=== PATIENT | female | born 1970 | race Caucasian/White ===

== ENCOUNTER 2024-07-28 09:53 | Outpatient (CLI) | payer OTHER, SELFPAY ==
--- NOTE | ~2024-07-28 | US_ITS ---
Pelvic ultrasound. Clinical History: Postmenopausal bleeding Technique: Realtime transvaginal scanning of the pelvis was performed. Color flow Doppler and Doppler spectral analysis were performed. Findings: The uterus is anteverted. The endometrial stripe has a thickness of 10 mm. No focal mass i s identified. The right ovary is not visualized. No significant right ovarian or adnexal mass is seen. The left ovary measures 2.3 x 3.0 x 2.3 cm. No significant left ovarian or adnexal mass is seen. There is no evidence of free fluid in the cul de sac. Impression: Endometrial thickening up to 10 mm. Diagnostic considerations include endometrial hyperplasia or poss ibly early endometrial neoplasm. Further workup advised, including possibly endometrial biopsy. Reviewed, dictated and finalized at location . [employer] Impression: Endometrial thickening up to 10 mm. Diagnostic considerations include endometri al hyperplasia or possibly early endometrial neoplasm. Further workup advised, including possibly endometrial biopsy.
== END 2024-07-28 09:54 | disposition home or self-care (01) ==
LOC: MICIMG 09:56
PROVIDERS: PCP Nurse Practitioner; Visit Provider Nurse Practitioner
DX: N95.0 Postmenopausal bleeding (principal)
CPT/HCPCS: 76830

== ENCOUNTER 2024-08-14 00:09 | Day surgery (SDC) | payer OTHER, SELFPAY ==
[2024-08-04 10:35] VITALS: BMI 23.1
--- NOTE | 2024-08-04 10:42 | PC.NURSE ---
Report to the Outpatient Waiting Room, entrance under the green pavilion located off [facility], at time _0830_ on date _08/14/24_. Planned Procedure Time: __1030_.? Time changes happen often and if your time is changed the preop area will call you the afternoon before. - You and your visitor will be asked to self-screen and do not enter if you have any COVID symptoms. Please call surgeon if you need to reschedule. - A mask is optional within the hospital at this time. Patients may have clear liquids (water, carbonated beverages, clear teas, apple juice) until 3 hours prior to surgery with a maximum of 20 ounces. - No food from midnight until time of surgery and no smoking. This includes no chewing gum, candy or mints. - Infants may have breast milk until 4 hours before surgery, formula 6 hours prior to surgery. - Children will be allowed to drink immediately following surgery.? If applicable, please bring a bottle or sippy cup to assist with drinking. Juice, water, soda, and popsicles are readily available.? For infants on formula, please bring formula the day of surgery.? Pacifiers are allowed. Take only the following medications with a SIP of water on the morning of surgery: __NONE DO NOT STOP ANY OF YOUR OTHER PRESCRIPTION MEDICATIONS PRIOR TO SURGERY EXCEPT THE FOLLOWING Medications to discontinue per physician DICLOFENAC Date to take last dose 08/09/24 Please no make-up, nail divehi, hairspray, perfume, deodorant, or body powder the day of surgery.? No jewelry (including any body piercings) or valuables the day of surgery, leave them at home.? Please take a shower or bath the night before, or the morning of, surgery with an antibacterial soap.? Wear comfortable, loose fitting clothing.? Children are encouraged to wear pajamas. - Jewelry must be removed prior to entering the operating room.? Rings and piercings that are not removed may be cut off. - The hospital will not accept responsibility for valuables.? - Please leave all valuables, including medications, at home the day of surgery. If you are going home after surgery, a licensed cart driver must drive you home.? - NO public transportation without another adult if you receive anesthesia. - We recommend that an adult stay with you for 24 hours following discharge. - We also recommend that you do not drive, make important decision, drink alcoholic beverages, or take any drugs that were not prescribed by your health care provider for at least 24 hours after your discharge time. For Pediatric surgeries, we recommend two adults accompany the child home. Follow any additional instructions given to you from your surgeon. Telephone instructions given to MIDKIFF__and asked if any additional questions and then verbalized understanding. Patient advised to call surgeon office or pre surgery nurse liaison [phone] if any additional questions.
--- NOTE | 2024-08-14 07:41 | WPDHPUPDATE1 ---
History and Physical Update Update Date/Time: 08/14/24 07:41 History and Physical has been reviewed, including an updated exam of the patient. There are NO changes in the patient's condition. Risks, benefits, and alternatives have been discussed and questions answered. Patient agrees to proceed with procedure.
--- NOTE | 2024-08-14 07:41 | PM.HPGS ---
History of Present Illness History of Present Illness Consent: Risks, benefits, and alternatives have been discussed and questions answered. Patient agrees to proceed with procedure. Chief complaint: post menopausal bleeding Narrative: Petrona Wright is a 53 year old female with postmenopausal bleeding and thickened endometrium. It was recommended to undergo D&C hysteroscopy for further evaluation. The risks of infection, bleeding, perforation, and possible pathology are reviewed. The patient voices understanding and agrees to proceed Review of Systems Review of Systems: not repeated day of surgery; patient states no changes in status FORMERLY [facility] Past Medical History Medical History (Updated 08/14/24 @ 08:00 by Irene Alarcon MD) (normal spontaneous vaginal delivery) 1997 Surgical History Surgical History (Updated 08/14/24 @ 07:59 by Irene Alarcon MD) History of 2001 complicated by gestational diabetes Social History Social History Smoking packs per day: 0.5 Smoking cigarettes per day: 10.0 Years smoked: 36 Smoking pack-years: 18.00 Smoking status: Former smoker Tobacco type: cigarettes Additional smoking assessment comments: STOPPED 04/2024 Alcohol intake: current Drinks per week: 1 Living arrangements: with family Meds Home Medications and Allergies Home Medications Medication Instructions Recorded Confirmed Type diclofenac sodium 75 mg 75 mg PO PRN PRN Pain 08/04/24 08/04/24 History tablet,delayed release pseudoephedrine HCl 30 mg tablet 30 mg PO Q4-6H PRN Congestion 08/04/24 08/04/24 History (Sudafed) Allergies Allergy/AdvReac Type Severity Reaction Status Date / Time bee venom protein (honey bee) Allergy Swelling Verified 08/04/24 10:31 doxycycline Allergy Rash Verified 08/04/24 10:31 Penicillins Allergy Rash Verified 08/04/24 10:31 Sulfa (Sulfonamide Allergy Rash Verified 08/04/24 10:31 Antibiotics) Exam Const: General: healthy appearing and alert Orientation/consciousness: patient oriented x3 Resp: Effort & Inspection: normal respiratory effort Auscultation: clear to auscultation bilaterally Cardio: Rate: regular rate Rhythm: regular rhythm GI: GI Palp: Yes Soft to palpation, No Tenderness to palpation present (GI) and No Palpable mass present : External Female Exam: normal external appearance Speculum Exam - Vagina: normal appearance of the vagina and normal vaginal discharge Speculum Exam - Cervix: normal appearance of the cervix Bimanual exam- vagina & uterus: uterine size normal and consistency normal Bimanual Exam- Adnexa, other: normal adnexae and No adnexal tenderness Neuro: General: patient oriented x3 Assessment and Plan Assessment and plan (1) Post-menopausal bleeding: Code(s): N95.0 - Postmenopausal bleeding Status: Acute Assessment and Plan: with thickened endometrium plan to proceed D&C hysteroscopy
[2024-08-14 08:15] VITALS: BP 123/71; PULSE 77; RESP 18; TEMP 36.8; O2SAT 99
[2024-08-14] MEDS: LACTATED RINGERS 1,000 ML 30 ML IV CONT (08:32)
[2024-08-14] MEDS: ACETAMINOPHEN 500 MG TABLET 1000 MG PO (08:33)
[2024-08-14 08:38] LABS: BEDSIDEPREGUCG Negative (Negative)
--- NOTE | 2024-08-14 08:48 | P.PNAN_ITS ---
Anes - Initial Pre Proc Eval Procedure: Operation Date: 08/14/24 09:45 Proposed Procedures p Hysteroscopy, Dilation and Curettage - Irene Alarcon MD Date/Time: 08/14/24 08:48 Surgeon: Irene Alarcon MD Pre Op Diagnosis: post menopausal bleeding Patient Data Age: 53 Gender: F Height: 1.7 m Weight: 66.4 kg Last Vital Signs Temp 98.3 F 08/14/24 08:15 Pulse 77 08/14/24 08:15 Resp 18 08/14/24 08:15 BP 123/71 08/14/24 08:15 Pulse Ox 99 08/14/24 08:15 O2 Del Method Room Air 08/14/24 08:15 Allergies Allergy/AdvReac Type Severity Reaction Status Date / Time bee venom protein (honey bee) Allergy Swelling Verified 08/14/24 08:32 doxycycline Allergy Rash Verified 08/14/24 08:32 Penicillins Allergy Rash Verified 08/14/24 08:32 Sulfa (Sulfonamide Allergy Rash Verified 08/14/24 08:32 Antibiotics) Home Medications Medication Instructions Recorded Confirmed Type diclofenac sodium 75 mg 75 mg PO PRN PRN Pain 08/04/24 08/14/24 History tablet,delayed release pseudoephedrine HCl 30 mg tablet 30 mg PO Q4-6H PRN Congestion 08/04/24 08/14/24 History (Sudafed) Laboratory Tests 08/14/24 08:15 POC Urine HCG, Qual Negative (Negative) Patient hx anesthesia problems: none Family hx anesthesia problems: none Results Review: All pre-operative results and documents have been reviewed as part of the pre- operative evaluation. FOR[facility]LY [facility] Past Medical History Medical History (Updated 08/14/24 @ 08:00 by Irene Alarcon MD) (normal spontaneous vaginal delivery) 1997 Surgical History Surgical History (Updated 08/14/24 @ 07:59 by Irene Alarcon MD) History of 2001 complicated by gestational diabetes Social History Social History Smoking packs per day: 0.5 Smoking cigarettes per day: 10.0 Years smoked: 36 Smoking pack-years: 18.00 Smoking status: Former smoker Tobacco type: cigarettes Additional smoking assessment comments: STOPPED 04/2024 Alcohol intake: current Drinks per week: 1 Living arrangements: with family Anes - Eval Final PreProcedure Day of Procedure 08/14/24 08:48 Patient weight: normal Heart: regular rate and rhythm Lungs: clear to auscultation Airway: Mallampati scale class II Neurological: alert and oriented Last oral intake: >/= 8 hours ASA classification: II Emergent: no Anesthetic plan: proceed Anesthesia type and monitoring: general GIVS and standard monitoring Results Review: All pre-operative results and documents have been reviewed as part of the pre- operative evaluation. Informed Consent: The patient's anesthetic plan and its attendant risks and benefits were discussed with the patient/family/POA. Questions were solicited and answers provided to the satisfaction of the patient/family/POA.
--- NOTE | 2024-08-14 10:01 | W.PM.PROC2 ---
Procedure Note - Detailed Date of Procedure 08/14/24 Pre-op Diagnosis post menopausal bleeding Post-op Diagnosis Same Procedure Performed D&C hysteroscopy Surgeon Irene Alarcon MD Anesthesia MAC Findings severe internal cervical stenosis endometrium appears atrophic with adenomyosis uterus sounds to 8cm Description of Procedure The patient is taken to the operating room and placed under anesthesia in the dorsal lithotomy position. She was prepped and draped in the usual sterile fashion. Coxsackie speculum was placed in the vagina and the cervix grasped on the anterior lip with a tenaculum. At approximately 1cm there is severe cervical stenosis. The os Finders are used and not successful. The small dilator was used and not successful. Sound is used to not successful. Hydrodissection was attempted and was not successful. Second attempt at the os Finders, small dilator, and sound was not successful. On the 2nd attempt hydro dissection the visible os is noted very anterior and the camera is able to be dissected into the space. The endometrium was finally entered. The endometrium has the appearance of adenomyosis. The endometrium is very atrophic. Due to the difficulty entering the endometrial cavity, the small Aveta resection device is opened and used to do the biopsy. Under direct visualization several strips of endometrium are taken. The hysteroscope was then removed. The uterus is sounded aiming at the very anterior cervix. The uterus sounds to 8cm. All instruments are removed. Sponge, needle, and instrument counts are correct per the OR staff. The patient was awakened from anesthesia and taken to recovery in stable condition. Estimated Blood Loss 5 Drains No Packing No Pathology Yes ( endometrial shavings) Complications No immediate complications Condition Stable Disposition PACU
[2024-08-14 10:02] VITALS: BP 109/69; PULSE 83; RESP 14; O2SAT 100
[2024-08-14 10:30] VITALS: BP 113/70; PULSE 76; RESP 20
[2024-08-14 10:50] VITALS: BP 115/62; PULSE 72; RESP 20
== END 2024-08-14 10:57 | disposition home or self-care (01) ==
PROVIDERS: Anesthesiology; PCP Nurse Practitioner; Visit Provider Obstetrics & Gynecology Gynecology
PROC: 0U5B8ZZ Destruction of Endometrium, Via Natural or Artificial Opening Endoscopic (ICD-10-PCS; CPT 58563; principal; 2024-08-14 09:45)
DX: R93.89 Abnormal findings on diagnostic imaging of other specified body structures (principal); N88.2 Stricture and stenosis of cervix uteri; Z98.890 Other specified postprocedural states; Z87.891 Personal history of nicotine dependence
CPT/HCPCS: 58558; 88305; A9270; J1100; J1885; J2003; J2250; J2405; J2704; J3010; J7120